=== PATIENT | male | born 1950 | race Caucasian/White ===

== ENCOUNTER → 2016-11-29 | Outpatient (CLI) | payer BC ==
[2016-11-29 14:31] LABS: ALT/SGPT 56 U/L (12-78); AST/SGOT 23 U/L (15-37); BLOOD UREA NITROGEN 18 mg/dl (7-18); BUN/CREATININE RATIO 15.2 (10-20); CALCIUM 9.7 mg/dl (8.5-10.1); CARBON DIOXIDE 30 mmol/L (21-32); CHLORIDE 106 mmol/L (98-107); CHOLESTEROL 236 mg/dl (0-200); GLUCOSE 110 mg/dl (70-99); POTASSIUM 4.9 mmol/L (3.5-5.1); SODIUM 141 mmol/L (136-145)
[2016-11-29 14:35] LABS: HDL CHOLESTEROL 47 mg/dl; LDL CHOLESTEROL CALCULATED 151 mg/dl; PROSTATE SPECIFIC ANTIGEN 0.358 ng/ml (0.000-4.000); TRIGLYCERIDES 190 mg/dl (0-150); VERY LOW DENSITY LIPOPROT CALC 38 mg/dl
== END | disposition home or self-care (01) ==
LOC: C.LABMFLN 07:48
PROVIDERS: ATTEND Family Medicine
DX: K21.9 Gastro-esophageal reflux disease without esophagitis (principal); E78.00 Pure hypercholesterolemia, unspecified; I10 Essential (primary) hypertension; Z12.5 Encounter for screening for malignant neoplasm of prostate

== ENCOUNTER → 2017-12-04 | Outpatient (CLI) | payer BC ==
[2017-12-04 18:12] LABS: ALBUMIN 3.9 gm/dl (3.4-5.0); ALKALINE PHOSPHATASE 43 U/L (45-117); ALT/SGPT 72 U/L (12-78); AST/SGOT 29 U/L (15-37); BLOOD UREA NITROGEN 22 mg/dl (7-18); CALCIUM 9.2 mg/dl (8.5-10.1); CARBON DIOXIDE 29 mmol/L (21-32); CHOLESTEROL 236 mg/dl (0-200); CREATININE 1.16 mg/dl (0.60-1.40); GLUCOSE 86 mg/dl (70-99); LDL CHOLESTEROL CALCULATED 162 mg/dl; POTASSIUM 4.2 mmol/L (3.5-5.1); SODIUM 138 mmol/L (136-145); TOTAL PROTEIN 7.5 gm/dl (6.4-8.2)
== END | disposition home or self-care (01) ==
LOC: C.LABMFLN 12:55
PROVIDERS: ATTEND Family Medicine
DX: E78.00 Pure hypercholesterolemia, unspecified (principal); I10 Essential (primary) hypertension; Z12.5 Encounter for screening for malignant neoplasm of prostate

== ENCOUNTER 2022-08-14 05:14 | Observation (INO) ==
--- NOTE | 2022-04-04 10:43 | PAT Medication Instructions ---
Medication Instructions Date of Service April 04, 2022 Home Medications Medication Instructions Recorded rizatriptan 10 mg tablet 10 mg PO ONCE PRN migraine 01/05/20 headache #27 tabs rizatriptan 10 mg tablet 10 mg PO ONCE PRN migraine headache aloe vera 25 mg capsule 1,000 mg PO QAM multivitamin 1 tab PO QAM psyllium seed (sugar) oral powder (Metamucil (sugar) oral powder) 1 tbsp PO DAILY PRN Constipation Rlrc-S-Fbwayj 3 dose PO QAM Lactobacillus 40-Bifidobact 3-S.thermophilus 100 billion cell capsule (Probiotic) 300 cap PO QAM diltiazem HCl 180 mg capsule,extended release 24 hr 180 mg PO QAM omeprazole 40 mg capsule,delayed release 40 mg PO QAM STOP taking 2 weeks before surgery (or as soon as possible if surgery is within 2 weeks) aloe vera 25 mg capsule 1,000 mg PO QAM Hsuy-D-Depoup 3 dose PO QAM DO NOT take the morning of surgery multivitamin 1 tab PO QAM psyllium seed (sugar) oral powder (Metamucil (sugar) oral powder) 1 tbsp PO DAILY PRN Constipation Lactobacillus 40-Bifidobact 3-S.thermophilus 100 billion cell capsule (Probiotic) 300 cap PO QAM Take morning of surgery With a small sip of water, OTHERWISE NOTHING TO EAT OR DRINK AFTER MIDNIGHT: rizatriptan 10 mg tablet 10 mg PO ONCE PRN migraine headache (if needed) diltiazem HCl 180 mg capsule,extended release 24 hr 180 mg PO QAM omeprazole 40 mg capsule,delayed release 40 mg PO QAM Take evening before surgery rizatriptan 10 mg tablet 10 mg PO ONCE PRN migraine headache (if needed) psyllium seed (sugar) oral powder (Metamucil (sugar) oral powder) 1 tbsp PO DAILY PRN Constipation (if needed) Other Notes If you have any questions please call us at [phone] or [phone] or [phone] or [phone]
--- NOTE | 2022-04-08 08:36 | Anesthesiology Consultation ---
Date of Service April 08, 2022 Assessment & Plan (1) Encounter for pre-operative examination: - Patient acceptable risk for surgery pending surgeon-ordered PCP preop evaluation ([facility]; scheduled 04/19). - COVID screening: Per assessment on 04/08: No known COVID-19 positive contacts or current COVID-19 related symptoms. Travel screen negative. Patient vaccinated. At surgeon discretion if preop Covid testing being done. - Outpatient joint assessment: Pt currently scheduled for inpatient pathway. If surgeon requests review for outpatient joint pathway, patient is acceptable candidate for outpatient joint program from anesthesia standpoint pending surgeon's office assessment of pt motivation/strong post-op home support/completion of same day joint program preop requirements. Chart Review Chart Review: Patient seen in Pre Admission Testing Teaching & Discussion Pre-Anesthesia Teaching/Discussion Notes: Instructed NPO after midnight before surgery,except medications with 15 cc of water. Medication instructions provided according to the PAT guidelines. History Surgery Operation Date: 05/08/22 11:55 Proposed Procedures p Right Total Knee Arthroplasty - Chan Jennings MD Height/Weight Height: 5 ft 7 in Weight: 107 kg Allergies Allergy/AdvReac Type Severity Reaction Status Date / Time No Known Allergies Allergy Verified 04/04/22 08:14 Medications Home Medications Medication Instructions Recorded Confirmed Last Taken rizatriptan 10 mg tablet 10 mg PO ONCE PRN migraine 01/05/20 04/04/22 Unknown headache #27 tabs aloe vera 25 mg capsule 1,000 mg PO QAM 04/06/21 04/04/22 Unknown multivitamin 1 tab PO QAM 04/06/21 04/04/22 Unknown psyllium seed (sugar) oral powder 1 tbsp PO DAILY PRN Constipation 04/06/21 04/04/22 Unknown (Metamucil (sugar) oral powder) [id number]-[id number] 3 dose PO QAM 04/04/22 04/04/22 Unknown Lactobacillus 40-Bifidobact 300 cap PO QAM 04/04/22 04/04/22 Unknown 3-S.thermophilus 100 billion cell capsule (Probiotic) diltiazem HCl 180 mg 180 mg PO QAM 04/04/22 04/04/22 Unknown capsule,extended release 24 hr omeprazole 40 mg capsule,delayed 40 mg PO QAM 04/04/22 04/04/22 Unknown release Past Medical History Medical History Adjustment disorder with depressed mood controlled without meds Benign essential hypertension Carotid stenosis Noted on life screening, no significant carotid stenosis on formal testing/carotid doppler 09/2021 Carpal tunnel syndrome Common migraine without aura Fatty liver Generalized osteoarthritis of multiple sites GERD without esophagitis Hypercholesterolemia Lumbar radiculopathy Lumbar stenosis Myalgia Obesity Prediabetes Sciatica Exercise / Class Metabolic Activity II 4-5 Yardwork/Stairs/Walk up hill (one FS (no CP, no SOB)) Past Family History Family History Mother Diabetes Brother Diabetes Past Surgical History Surgical History History of colonoscopy History of esophagogastroduodenoscopy (EGD) History of oral surgery tooth extractions S/P epidural steroid injection Past Anesthesia History No Hx of Anesthesia Complications and No Family Hx of Anesthesia Complications History of PONV No Hx of PONV and No Hx of Motion Sickness Social History Smoking Status: Former smoker Do You Dip or Chew Tobacco: No Smoking End Date: Quit 1990 Hx Alcohol Use: Yes Alcohol type: beer alcohol intake frequency: holidays/special occasions only Hx Substance Use: No substance use type: does not use Review of Systems Patient denies chest pain, shortness of breath, dyspnea on exertion, fever, chills, cough, wheezing, palpitations. Physical Exam Vital Signs VITALS BP 146/79 P 54 TEMP 98.0 SP02 96%RA RESP 18 PHYSICAL Full cervical extension range of motion. Full TMJ range of motion. TMD 3 finger breaths Mallampati Score 3 Dentition: upper/lower full dentures Lungs: clear throughout to auscultation Cardiac: regular rate and rhythm, no murmurs noted Spine: normal Carotid arteries: negative bruit Extremities: no edema Lab Results Anesthesia Preop Results Results Anesthesia Widget: WBC 8.50 K/ul (4.8-10.8) 04/08/22 Hgb 13.8 g/dl (14.0-18.0) L 04/08/22 Hct 41.2 % (40.1-51.0) 04/08/22 Plt 341 K/uL (130-400) 04/08/22 Na 139 mmol/L (136-145) 04/08/22 K 4.1 mmol/L (3.5-5.1) 04/08/22 Cl 104 mmol/L (98-107) 04/08/22 CO2 26 mmol/L (21-32) 04/08/22 BUN 19 mg/dl (6-23) 04/08/22 Creat 0.97 mg/dl (0.6-1.4) 04/08/22 Glucose Level 95 mg/dl (70-99(Fasting)) 04/08/22 PT 10.9 Seconds (9.0-12.0) 04/08/22 PTT 24.9 Seconds (21.0-31.0) 04/08/22 INR 1.0 (0.9-1.1) 04/08/22 HA1c 6.2 % (4.5-5.6) H 04/08/22 Urine Color Yellow 04/08/22 Urine Appearance Clear (Clear) 04/08/22 Urine pH 5.5 (4.5-7.5) 04/08/22 Urine Specific [place] 1.024 (1.000-1.030) 04/08/22 Urine Protein Negative (Negative) 04/08/22 Urine Glucose (UA) Negative (Negative) 04/08/22 Urine Ketones Negative (Negative) 04/08/22 Urine Blood Negative (Negative) 04/08/22 Urine Nitrite Negative (Negative) 04/08/22 Urine Bilirubin Negative (Negative) 04/08/22 Urine Urobilinogen Negative (Negative) 04/08/22 Urine Leukocyte Esterase Negative (Negative) 04/08/22 Blood Type A Positive 04/08/22 Antibody Screen NEGATIVE 04/08/22 Testing Electrocardiogram Date: 04/08/22 Findings: + SB @ (54) Chest X-Ray Date: 04/08/22 Findings: + NAD Stress Test Date: 08/04/18 Type: exercise Normal exercise echocardiogram without evidence of inducible ischemia. Mild AR. Grade 1 diastolic dysfunction. Thickened mitral valve. EF 50-55%. Grade 1 diastolic dysfunction. Mild concentric LVH. No ST changes on stress ECG. Other Testing Carotid doppler (10/02/21) There is no sonographic evidence of hemodynamically significant stenosis in the right or left carotid arterial system. Antegrade flow is shown in the vertebral arteries. COVID-19 Risk Screen Screening Information COVID-19 Screen Date: 04/08/22 Exposure 21 Days Family/Household +COVID Last 21 Days: No Exposure 10 Days Any COVID Exposure Last 10 Days: No Symptoms Last 10 Days Experienced COVID Sx Last 10 Days: No + COVID 0-90 Days COVID + in Last 0-90 Days: No
--- NOTE | 2022-06-21 11:49 | Anesthesiology Consultation ---
Date of Service June 21, 2022 Assessment & Plan Chart Review Chart Review: Acceptable Risk for Surgery and Patient NOT seen in Pre Admission Testing History Surgery Operation Date: 06/26/22 07:15 Proposed Procedures p Right Total Knee Arthroplasty - Chan Jennings MD Height/Weight Height: 5 ft 6 in Weight: 106.141 kg Allergies Allergy/AdvReac Type Severity Reaction Status Date / Time No Known Allergies Allergy Verified 06/21/22 09:06 Medications Home Medications Medication Instructions Recorded Confirmed Last Taken rizatriptan 10 mg tablet 10 mg PO ONCE PRN migraine 01/05/20 06/21/22 Unknown headache #27 tabs aloe vera 25 mg capsule 1,000 mg PO QAM 04/06/21 06/21/22 Unknown multivitamin 1 tab PO QAM 04/06/21 06/21/22 Unknown psyllium seed (sugar) oral powder 1 tbsp PO DAILY PRN Constipation 04/06/21 06/21/22 Unknown (Metamucil (sugar) oral powder) Ywwp-O-Pxjuta 3 dose PO QAM 04/04/22 06/21/22 Unknown Lactobacillus 40-Bifidobact 300 cap PO QAM 04/04/22 06/21/22 Unknown 3-S.thermophilus 100 billion cell capsule (Probiotic) diltiazem HCl 180 mg 180 mg PO QAM 04/04/22 06/21/22 Unknown capsule,extended release 24 hr omeprazole 40 mg capsule,delayed 40 mg PO QAM 04/04/22 06/21/22 Unknown release Past Medical History Medical History Adjustment disorder with depressed mood REMOTE HX / controlled without meds Benign essential hypertension Carotid stenosis Noted on life screening, no significant carotid stenosis on formal testing/carotid doppler 09/2021 Carpal tunnel syndrome Common migraine without aura Fatty liver Generalized osteoarthritis of multiple sites GERD without esophagitis History of COVID-19 APR 25 + COVID TEST [facility], NO CURRENT S/S. Hypercholesterolemia Lumbar radiculopathy Lumbar stenosis Myalgia Obesity Osteoarthritis of right knee Prediabetes Sciatica Past Family History Family History Mother Diabetes Brother Diabetes Past Surgical History Surgical History History of colonoscopy History of esophagogastroduodenoscopy (EGD) History of oral surgery tooth extractions S/P epidural steroid injection Social History Smoking Status: Former smoker tobacco type: cigarettes Smoking cigarettes per day: 1990 Do You Dip or Chew Tobacco: No Smoking End Date: Quit 1990 Hx Alcohol Use: Yes (HX SOCIAL) Alcohol type: beer alcohol intake frequency: holidays/special occasions only Hx Substance Use: No substance use type: does not use Testing Electrocardiogram Date: 04/08/22 Findings: + SB @ (54) Chest X-Ray Date: 04/08/22 Findings: + NAD Stress Test Date: 08/04/18 Type: exercise Normal exercise echocardiogram without evidence of inducible ischemia. Mild AR. Grade 1 diastolic dysfunction. Thickened mitral valve. EF 50-55%. Grade 1 diastolic dysfunction. Mild concentric LVH. No ST changes on stress ECG. Other Testing Carotid doppler (10/02/21) There is no sonographic evidence of hemodynamically significant stenosis in the right or left carotid arterial system. Antegrade flow is shown in the vertebral arteries.
--- NOTE | 2022-08-13 08:38 | History & Physical Report ---
Date of Service August 13, 2022 Assessment & Plan (1) Primary osteoarthritis of right knee: Plan: Treatment options discussed with patient. He has failed conservative measures and would like to proceed with surgery. Risks, benefits and alternatives to surgery including but not limited to infection, DVT, pain, stiffness, need for revision surgery, damage to blood vessels, damage to nerves, PE, , were discussed with the patient and they wish to proceed. Plan on right total knee arthroplasty at [facility] on 08/14/[address] Jennings. Plan on outpatient PT post op. Aspirin 81mg BID for 1 mo post op for DVT prophylaxis. All questions answered. F/u post op. History of Present Illness Chief Complaint: Right knee pain Primary Care Provider: Patrice Esteves MD 71yo male with PMHx significant for high cholesterol, migraines, GERD, HTN, carotid stenosis who presents with ongoing right knee pain. Pain has been interfering with his daily activity. He has failed conservative measures. He would like to proceed with surgical intervention. Patient denies headaches, sweats, fevers, chills, double vision, blurred vision, cough, sore throat, dysphagia, chest pain, sob, wheezing, n/v/d/c, numbness, tingling, fatigue, urinary symptoms, mood disorders. ROS positive for right knee pain and stiffness. Allergies Allergy/AdvReac Type Severity Reaction Status Date / Time No Known Allergies Allergy Verified 08/14/22 05:31 Home Medications Medication Instructions Recorded Confirmed Type rizatriptan 10 mg tablet 10 mg PO ONCE PRN migraine 01/05/20 08/14/22 Rx headache #27 tabs aloe vera 25 mg capsule 1,000 mg PO QAM 04/06/21 08/14/22 History multivitamin 1 tab PO QAM 04/06/21 08/14/22 History psyllium seed (sugar) oral powder 1 tbsp PO DAILY PRN Constipation 04/06/21 08/14/22 History (Metamucil (sugar) oral powder) Hfoe-N-Xydvif 3 dose PO QAM 04/04/22 08/14/22 History Lactobacillus 40-Bifidobact 300 cap PO QAM 04/04/22 08/14/22 History 3-S.thermophilus 100 billion cell capsule (Probiotic) diltiazem HCl 180 mg 180 mg PO QAM 04/04/22 08/14/22 History capsule,extended release 24 hr omeprazole 40 mg capsule,delayed 40 mg PO QAM 04/04/22 08/14/22 History release Past Med/Surg History Medical History Adjustment disorder with depressed mood REMOTE HX / controlled without meds Benign essential hypertension Carotid stenosis Noted on life screening, no significant carotid stenosis on formal testing/carotid doppler 09/2021 Carpal tunnel syndrome Common migraine without aura Fatty liver Generalized osteoarthritis of multiple sites GERD without esophagitis History of COVID-19 APR 25 + COVID TEST [facility], NO CURRENT S/S. Hypercholesterolemia Lumbar radiculopathy Lumbar stenosis Myalgia Obesity Osteoarthritis of right knee Prediabetes Sciatica Surgical History History of colonoscopy History of esophagogastroduodenoscopy (EGD) History of oral surgery tooth extractions S/P epidural steroid injection Family History Mother Diabetes Brother Diabetes Social History Smoking Status: Former smoker Cigarettes Per Day: 1990; Smoking End Date: Quit 1990; Second Hand Exposure: No; Do You Dip or Chew Tobacco: No; Tobacco Cessation Education Requested by Patient: No Hx Alcohol Use: Yes (HX SOCIAL) Alcohol type: beer Hx Substance Use: No Preferred Language: Telugu Communication Ability: Effective Visual Impairment: No Limitations Hearing Ability: Normal Property Administrator Required: No Beliefs That Will Affect Care: None marital status: Current Living Situation: Spouse Current Living Situation Comment: lives with spouse and son current occupational status: employed Other Information That Helps Us Care for You: No Feels Safe at Home: Yes Safety Concerns: Feels Safe At This Time Childhood Exposure to Second-Hand Smoke: Yes caffeine: Yes Dental Care, Regularly: Yes Physical Activity Frequency: 3-4 Times per Week Physical Activity Frequency Comment: walking, house chores Seatbelt Use: always Sunscreen Use: No Assistive Devices: Denture - Upper, Denture - Lower and Glasses Review of Systems All systems reviewed & are unremarkable except as noted in HPI & below Physical Exam Constitutional: well developed and well nourished; no acute distress Eyes: PERRL, conjunctivae normal, anicteric sclerae ENMT: external ear and nose normal, oropharynx normal Neck: trachea midline, no thyromegaly Respiratory: normal respiratory effort, lungs clear to auscultation Cardiovascular: RRR, no murmur, no edema Musculoskeletal: Right knee: Mild effusion. Tenderness medial joint line. Positive Pati's, stable to valgus and varus stress. ROM 5-100 degrees Skin: no rashes, warm and dry Neurologic: patellar DTR's 2+ bilat, sensation intact Psychiatric: A+Ox3, euthymic affect Results & Data ([facility]) Diagnostic Findings Right knee radiographs demonstrate endstage osteoarthritis, bone on bone medial compartment with periarticular osteophyte formation and subchondral sclerosis, patellofemoral joint arthritic change
[2022-08-14] MEDS ORDERED: METOCLOPRAMIDE HCL 10 MG TABLET PO SCH (06:00)
[2022-08-14] MEDS ORDERED: CeleBREX 200 MG CAP PO SCH (06:00)
[2022-08-14] MEDS ORDERED: ACETAMINOPHEN 500 MG TAB PO SCH (06:00)
[2022-08-14] MEDS ORDERED: GABAPENTIN 300 MG CAP PO SCH (06:00)
[2022-08-14] MEDS ORDERED: ceFAZolin 2000MG 2,000 MG/15 ML SYR IV SCH (06:00)
[2022-08-14] MEDS ORDERED: TRANEXAMIC ACID 1,000 MG **IV Pre-op IV SCH (06:00)
[2022-08-14] MEDS ORDERED: dexAMETHasone 4 MG TAB PO SCH (06:00)
[2022-08-14] MEDS ORDERED: LR 500ML BOLUS, THEN 15ML/HR IV SCH (06:00)
[2022-08-14] MEDS ORDERED: TRANEXAMIC ACID 1,000 MG **IV Intra-op IV SCH (06:00)
[2022-08-14] MEDS ORDERED: ROPIVACAINE 0.5% HCL/PF 150 MG, BUPIVACAINE 0.75% MPF 20 ML, EPINEPHrine 30MG/30ML (OR ... INSTIL SCH (06:00)
[2022-08-14] MEDS ORDERED: FAMOTIDINE 20 MG TAB PO SCH (06:00)
[2022-08-14] MEDS ORDERED: ROPIVACAINE 0.5% 5 MG/ML 30 ML VIAL ONE (06:16)
[2022-08-14] MEDS ORDERED: EPINEPHrine INJ 1 MG/ML AMP ONE (06:16)
[2022-08-14] MEDS ORDERED: BUPIVACAINE 0.5 % 5 MG/1 ML PF 10ML VIAL ONE (06:16)
[2022-08-14] MEDS ORDERED: LIDOCAINE 2% MPF LOCAL 5 ML VIAL INFIL ONE (06:34)
[2022-08-14] MEDS ORDERED: MIDAZOLAM HCL 1 MG/ML 2ML VIAL ONE (06:34)
[2022-08-14] MEDS ORDERED: ONDANSETRON INJ 2 MG/ML 2 ML VIAL ONE (06:34)
[2022-08-14] MEDS ORDERED: PROPOFOL IV EMULSION 10 MG/ML 20 ML VIAL IV ONE ×3 (06:34→09:34)
--- NOTE | 2022-08-14 07:17 | History & Physical Bridge Note ---
Date of Service August 14, 2022 History & Physical Bridge Note I have examined the patient, reviewed the History & Physical and in the interval since the performance of the History & Physical I have noted the following changes of clinical significance: no changes noted
[2022-08-14] MEDS ORDERED: ORTHO JOINT ANESTHETIC ONE (07:21)
[2022-08-14] MEDS ORDERED: ePHEDrine sulfate 50 MG/ML SYR ONE (07:53)
[2022-08-14] MEDS ORDERED: fentaNYL citrate 100 MCG/2 ML VIAL ONE (09:06)
[2022-08-14] MEDS ORDERED: RIZATRIPTAN BENZOATE 10 MG TAB PO PRN (11:07)
[2022-08-14] MEDS ORDERED: ePHEDrine sulfate 50 MG/ML AMP IV PRN (11:21)
[2022-08-14] MEDS ORDERED: ATROPINE SULFATE 0.1 MG/ML 10ML SYR IV PRN (11:21)
--- NOTE | 2022-08-14 11:34 | XRay Report ---
RIGHT KNEE 2 VIEWS History: Right total knee arthroplasty. Degenerative arthritis. Postop. FINDINGS: The patient is status post a right total knee arthroplasty. The hardware is intact. No frac ture or dislocation. Skin caterina and surgical drains are in place. IMPRESSION: Right total knee arthroplasty. No evidence for hardware complication. ACT 112: Negative or not required by law. Electronically signed by: Raghav Wilson M.D. 08/14/2022 10:58 AM
[2022-08-14] MEDS ORDERED: ONDANSETRON INJ 2 MG/ML 2 ML VIAL IV PRN (11:53)
[2022-08-14] MEDS ORDERED: METOCLOPRAMIDE HCL INJ 5 MG/ML 2 ML VIAL IV PRN (11:53)
[2022-08-14] MEDS ORDERED: bisacodyL 10 MG SUPP PR PRN (11:53)
[2022-08-14] MEDS ORDERED: NALOXONE HCL 0.4 MG/1 ML VIAL/CARP IV PRN ×2 (11:53→13:24)
[2022-08-14] MEDS ORDERED: MAGNESIUM HYDROXIDE SUSP 30 ML UDC PO PRN (11:53)
[2022-08-14] MEDS ORDERED: SODIUM CHLORIDE 0.9% 1000ML 1,000 ML IV SCH ×2 (12:00→12:45)
--- NOTE | 2022-08-14 12:34 | Operative Report ---
Post Operative Report Pre & Post Diagnosis Operation Date: 08/14/22 07:15 Pre-Op Diagnosis: Primary end-stage osteoarthritis of right knee Post-Op Diagnosis: Primary end-stage osteoarthritis of right knee I identified the patient and participated in the time-out.: Yes Procedure Operation Date: 08/14/22 07:15 Actual Procedures p Right Total Knee Arthroplasty(Right), patricia and Acticoat superficial wound VAC- Chan Jennings MD Surgeon Chan Jennings MD 3D Specialist Ulisses TADEO Estimated Blood Loss 5 Findings Consistent with Post-Op Diagnosis Specimens Bone cuts Drains 2 Hemovac Anesthesia Type MAC Spinal Regional Complications none Disposition Disposition: Recovery Room Indications 71-year-old male with chronic bilateral knee osteoarthritis. He has varus right knee with vttj-[id number]-[id number] medial compartment but tricompartmental osteophytes. Description of Procedure Patient was taken to the operating room placed supine on the operating table and anesthetized under spinal MAC regional block anesthesia. Exam under anesthesia demonstrated 15 to 20 degree flexion contracture with further flexion to only 100 degrees with a moderate large effusion and no instability. A pneumatic tourniquet was placed about the thigh of the right lower extremity. The right lower extremity was prepped and draped in usual sterile fashion. The leg was elevated exsanguinated with an Esmarch bandage and the pneumatic tourniquet was raised to 350 mm mercury. An anterior incision was made across the right knee. The skin was incised longitudinally subcutaneous flaps were elevated and an incision was made through the medial retinaculum extending up into the mid third of the quadriceps tendon and extended down to the medial tibial tubercle. Intra-articular findings demonstrated tricompartmental osteoarthritis [id number] medial compartment with eburnated bone. There was degeneration of the ACL but was still intact. The knee was exposed by excising the infrapatellar fat pad, excising the meniscal remnants and anterior cruciate ligament. Any inflamed synovial tissue was resected. The fat pad over the anterior femur was resected for placement of the component in that area. The lateral synovial bands were release. The femur was exposed. The custom femoral cutting block was pinned in position. The distal femoral cutting block was applied. The distal femoral cut was made with the oscillating saw. The size 10, 4-in-1 cutting block was placed. The anterior and posterior chamfer cuts were made. The knee was extended and a subperiosteal peel lateral release was performed around the patella. The patella width was measured and width was reproduced using freehand cut technique. The 35 millimeter symmetrical patella was used. 3 drill holes are made for the pegs. The tibia was exposed. A custom tibial cutting block was positioned and drill holes were made for the cutting guide. Cutting guide was placed and the proximal cut was made with the oscillating saw. All osteophytes were resected. The lamina lime spreader was used to assess ligamentous balance and the ligaments were balanced in extension and flexion. This required medial posterior medial release and pie crusting MCL to balance ligaments. The tibia was reexposed and measured for a size F tibial component. This was externally rotated in line with the tibial tubercle and the fixation pins were drilled. The proximal tibia was fashioned with the drill and punch. The size 10 CR femoral trial was inserted. The trial MC inserts were used. The 14 mm insert gave balanced ligaments through full range of motion. The patella tracked centrally. the trials were removed. The orthomix anesthetic cocktail was injected per protocol. The knee was then copiously irrigated with pulsatile lavage saline solution. The final components were cemented with Refobacin bone cement. The final components were 10 standard CR right persona femoral component, F right tibial component, 14 mm right MC polyethylene tibial component, 35 symmetrical polyethylene patella. After the cement cured with the knee in full extension the Betadine soak was used per protocol. The knee joint was copiously irrigated with pulsatile lavage saline solution . 2 drains were brought out laterally and connected to a Hemovac. The quadriceps tendon and medial retinaculum were closed with interrupted enrshj-nr-gvnix #1 Vicryl sutures. The knee was taken through a full range of motion and repair was secure. The subcutaneous tissues were closed with 2-0 Vicryl sutures and skin was closed with caterina. Patricia and Acticoat superficial wound VAC was applied and the patient tolerated the procedure well. Ulisses TADEO my physician certified dental assistant participated as dental chairside assistant was a integral part in all aspects of the procedure, he assisted in soft tissue retraction, instrument management ,leg positioning, the closure and will participate in the postoperative care of the patient. I attest to the content of the Intraoperative Record and any orders documented therein. Any exceptions are noted below.
--- NOTE | 2022-08-14 12:36 | Anesthesiology Progress Note ---
Date of Service August 14, 2022 Anesthesia Post Procedure Vital Signs Vital Signs: Temp Pulse Resp BP Pulse Ox O2 Del Method 08/14/22 05:34 36.8 C 67 18 161/74 H 97 Room Air Transfer of Care Handoff Completed per policy Notes Mental Status: alert / awake / arousable Patient Amnestic to Procedure: Yes Nausea / Vomiting: adequately controlled Pain: adequately controlled Airway Patency, RR, SpO2: stable & adequate BP & HR: stable & adequate Hydration State: stable & adequate Neuraxial Anesthesia: was administered and sensory block is resolving Anesthetic Complications: no major complications apparent
[2022-08-14] MEDS ORDERED: TAMSULOSIN HCL 0.4 MG CAP PO PRN (13:24)
[2022-08-14] MEDS ORDERED: HYDROmorphone INJ 0.5 MG/0.5 ML SYR IV PRN (13:24)
--- NOTE | 2022-08-14 14:33 | Hospitalist Consultation ---
Date of Consultation August 14, 2022 Assessment & Plan (1) Status post right knee replacement: -The patient is currently afebrile, hemodynamically stable, and stable on RA -Pain control, DVT PPX, perioperative abx, and IV fluids per the primary team -Agree with pantoprazole for stress ulcer PPX and am CBC/BMP -We will sign off but will follow up on am labs to ensure the patient remains stable, please call with any questions or concerns (2) GERD without esophagitis: -Agree with pantoprazole while admitted for stress ulcer PPX (3) Benign essential hypertension: -Stable -Agree with continue Diltiazem tomorrow as long as the patient is hemodynamicall y stable (4) Headache, common migraine: -Agree with prn Rizatriptan as long as the patient is not hypertensive prior to administration Plan The patient was discussed with Dr. Cary at the time of the consult History of Present Illness Reason for Consultation: Post-op medical management Requesting Physician: Chan Jennings MD Attending Physician: Dr. Raj Cary History of Present Illness Rolando is a 71 year old male with a PMH significant for Carotid artery stenosis, HTN, migraines without Aura, fatty liver disease, GERD, hyperlipidemia, prediabetes, obesity, and OA who presented to the [facility] OR on 08/14/22 for elective Right Total Knee Arthroplasty with Dr. Jennings. Per the operative report, there were no reported intraoperative complications, anesthesia was listed as "[facility]", and EBL was listed as 5 cc. Per review of the patient vitals, he has been afebrile, hemodynamically stable- hypertensive (175/80), and stable on RA. At the time of the exam the patient was resting comfortably in bed in no acute distress. He currently has no complaints post-op and was already able to void and eat lunch. He does not have any pain in the right leg at this time and is still feeling the partial effects of the nerve block. He denies using a CPAP at night and confirms that he took his am Diltiazem. Please refer to Dr. Cary's attestation for any changes to the treatment plan Allergies Allergy/AdvReac Type Severity Reaction Status Date / Time No Known Allergies Allergy Verified 08/14/22 05:31 Home Medications Medication Instructions Recorded Confirmed Type rizatriptan 10 mg tablet 10 mg PO ONCE PRN migraine 01/05/20 08/14/22 Rx headache #27 tabs aloe vera 25 mg capsule 1,000 mg PO QAM 04/06/21 08/14/22 History multivitamin 1 tab PO QAM 04/06/21 08/14/22 History psyllium seed (sugar) oral powder 1 tbsp PO DAILY PRN Constipation 04/06/21 08/14/22 History (Metamucil (sugar) oral powder) Wgyx-F-[id number] 3 dose PO QAM 04/04/22 08/14/22 History Lactobacillus 40-Bifidobact 300 cap PO QAM 04/04/22 08/14/22 History 3-S.thermophilus 100 billion cell capsule (Probiotic) diltiazem HCl 180 mg 180 mg PO QAM 04/04/22 08/14/22 History capsule,extended release 24 hr omeprazole 40 mg capsule,delayed 40 mg PO QAM 04/04/22 08/14/22 History release Patient History Medical History (Updated 08/14/22 @ 14:31 by Samir Noel PA-C) Adjustment disorder with depressed mood REMOTE HX / controlled without meds Benign essential hypertension Carotid stenosis Noted on life screening, no significant carotid stenosis on formal testing/carotid doppler 09/2021 Carpal tunnel syndrome Common migraine without aura Fatty liver Generalized osteoarthritis of multiple sites GERD without esophagitis History of COVID-19 APR 25 + COVID TEST [facility], NO CURRENT S/S. Hypercholesterolemia Lumbar radiculopathy Lumbar stenosis Myalgia Obesity Osteoarthritis of right knee Prediabetes Sciatica Surgical History (Updated 08/14/22 @ 14:31 by Samir Noel PA-C) History of colonoscopy History of esophagogastroduodenoscopy (EGD) History of oral surgery tooth extractions S/P epidural steroid injection Family History Mother Diabetes Brother Diabetes Social History Smoking Status: Former smoker Cigarettes Per Day: 1990; Smoking End Date: Quit 1990; Second Hand Exposure: No; Do You Dip or Chew Tobacco: No; Tobacco Cessation Education Requested by Patient: No Hx Alcohol Use: Yes (HX SOCIAL) Alcohol type: beer Hx Substance Use: No Preferred Language: Pry[place]in[place] Communication Ability: Effective Visual Impairment: No Limitations Hearing Ability: Normal Die Cutter Required: No Beliefs That Will Affect Care: None marital status: Current Living Situation: Spouse Current Living Situation Comment: lives with spouse and son current occupational status: employed Other Information That Helps Us Care for You: No Feels Safe at Home: Yes Safety Concerns: Feels Safe At This Time Childhood Exposure to Second-Hand Smoke: Yes caffeine: Yes Dental Care, Regularly: Yes Physical Activity Frequency: 3-4 Times per Week Physical Activity Frequency Comment: walking, house chores Seatbelt Use: always Sunscreen Use: No Assistive Devices: Denture - Upper, Denture - Lower and Glasses Review of Systems Review of Systems: Denies current fever, chills, headache, changes in vision, hearing, taste, and smell, chest pain, SOB, cough, abdominal pain, nausea, vomiting, diarrhea, hematemesis, melena, dysuria, hematuria, and recent falls. All systems have been reviewed and are otherwise negative. Physical Exam Physical Exam: Physical Exam: General: In no acute distress, stated age, well-nourished, good hygiene HEENT: Normocephalic, atraumatic, no scleral icterus, pupils around round, symmetrical, and reactive to light, moist mucus membranes, trachea midline, no thyromegaly Chest/Pulm: No respiratory distress, symmetrical chest expansion, clear breath sounds throughout Cardiac: RRR, no murmurs noted Abdomen: Negative for ascites and bruising, normoactive bowel sounds, soft, non-tender to palpation throughout Musculoskeletal: RLE currently with wrap and SCD in place. Drain is in place at the surgical site and is without signs of infection, patient with intact sensation, motor function and distal pulses in the BL LEs Extremities: Radial, dorsalis pedis, and posterior tibial pulses are intact and symmetrical, no edema noted in the BL LE's Skin: Warm, dry, no rashes , lesions, or scars noted Neuro: Alert and oriented to person, place, month, year, and president, no focal defects Psych: No acute distress, calm and cooperative during the exam Results & Data Results & Data ([facility]) Vital Signs (Past 12 Hours) Vital Signs Temp Pulse Resp BP Pulse Ox O2 Del Method 08/14/22 13:39 36.4 C L 82 18 139/74 94 Room Air 08/14/22 12:31 36.6 C 79 18 175/80 H 94 Room Air 08/14/22 12:01 36.5 C 80 18 167/84 H 94 Room Air 08/14/22 05:34 36.8 C 67 18 161/74 H 97 Room Air Laboratory Results Abnormal lab results 08/14/22 Range/Units 05:44 POC Glucose 116 H (70-99) mg/dl Diagnostic Findings Knee X-Ray 08/14/22 11:22 RIGHT KNEE 2 VIEWS History: Right total knee arthroplasty. Degenerative arthritis. Postop. FINDINGS: The patient is status post a right total knee arthroplasty. The hardware is intact. No fracture or dislocation. Skin caterina and surgical drains are in place. IMPRESSION: Right total knee arthroplasty. No evidence for hardware complication. ACT 112: Negative or not required by law. Electronically signed by: Raghav Wilson M.D. 08/14/2022 10:58 AM ECG Additional Comments: No ECg available at the time of the consult PG Care Time/CCT Total # of Minutes Spent Total Time Spent with Patient: Total time spent is greater than 50% in coordination of care (as documented) at patient's floor/unit and/or counseling patient: Coding Level of Care Code Established Pt INP/OBS CONSULT LVL 5, 80 MIN Patient Type Established Medical Decision Making High Complexity Diagnoses Status post right knee replacement Z96.651 GERD without esophagitis K21.9 Benign essential hypertension I10 Headache, common migraine G43.009
[2022-08-14] MEDS: ACETAMINOPHEN 500 MG TAB PO SCH ×2 (16:04→22:36)
[2022-08-14] MEDS: ceFAZolin 2000MG 2,000 MG/15 ML SYR IV SCH ×2 (16:06→22:36)
[2022-08-14] MEDS: ASPIRIN 81 MG ECTAB PO SCH (20:26)
[2022-08-14] MEDS: SENNA 8.6 MG TAB PO SCH (20:26)
[2022-08-14] MEDS: CeleBREX 200 MG CAP PO SCH (20:27)
[2022-08-14] MEDS: DOCUSATE SODIUM 100 MG CAP PO SCH (20:28)
[2022-08-15] MEDS: oxyCODONE HCL IR 5 MG TAB (IMMEDIATE RELEASE) PO PRN ×3 (03:24→22:09)
[2022-08-15] MEDS: ACETAMINOPHEN 500 MG TAB PO SCH ×3 (05:27→22:07)
[2022-08-15 07:08] LABS: BUN Creatinine Ratio 18.9 (10-20); Calcium 9.3 mg/dl (8.5-10.1); Creatinine Clr Calc Pharmacy 82.4 ml/min; Est GFR (Non-African American) 80.2 ml/min; Potassium 4.6 mmol/L (3.5-5.1)
--- NOTE | 2022-08-15 07:40 | Orthopedic Progress Note ---
Date of Service August 15, 2022 Assessment & Plan (1) Primary osteoarthritis of right knee: Plan: POD#1 right TKA -PT/OT -Pain management as written -DVT prophylaxis-SCDs, TEDs, ASA 81mg BID -AM labs-pending -D/C planning-plan on d/c home with OPPT. Likely tomorrow based on amount of drainage however will recheck after PT for possible discharge today if therapy goes well and pain controlled. Admission and Anticipated Discharge Date Admission Date: August 14, 2022 Subjective Patient is postop day 1 right total knee. Overall he is doing well. His pain is well controlled. Did have episode of knee giving out on him yesterday but seems to be imporoving. Review of Systems Review of Systems: All systems reviewed & are unremarkable except as noted in Subjective Physical Exam Physical Exam: Right knee: Dressing is c/d/i. Hemovac on suction, 225cc over last shift. No calf tenderness. Toes mobile with good DF. Distally n/v status and sensation grossly intact. Able to do SLR. Constitutional: WD/WN, vitals as above Results & Data ([facility]) Vital Signs (Past 12 Hours) Vital Signs Temp Pulse Resp BP Pulse Ox O2 Del Method 08/15/22 03:40 36.6 C 82 20 152/77 H 96 Room Air 08/14/22 22:34 36.7 C 83 18 136/76 96 Room Air 08/14/22 19:39 36.6 C 97 H 16 135/72 95 Room Air
[2022-08-15] MEDS: dilTIAZem HCL 180 MG CAPCR PO SCH (08:17)
[2022-08-15] MEDS: MULTIVITAMIN TAB PO SCH (08:17)
[2022-08-15] MEDS: PANTOprazole 40 MG TAB PO SCH (08:17)
[2022-08-15] MEDS: DOCUSATE SODIUM 100 MG CAP PO SCH ×2 (08:18→20:59)
[2022-08-15] MEDS: ASPIRIN 81 MG ECTAB PO SCH ×2 (08:18→21:00)
[2022-08-15] MEDS: CeleBREX 200 MG CAP PO SCH ×2 (08:18→21:00)
[2022-08-15 09:27] LABS: Hematocrit (blood only) 36.1 % (42.0-52.0); Hemoglobin 12.3 g/dl (14.0-18.0); Mean Corpuscular Hemoglobin 28.7 pg (25.0-34.0); Mean Corpuscular Hgb Conc 34.1 g/dL (32.0-36.0); Mean Corpuscular Volume 84.1 fL (80.0-100.0); Mean Platelet Volume 9.6 fL (9.4-12.4); Platelet Count 289 K/uL (130-400); RDW Coefficient of Variation 12.6 % (11.5-14.5); RDW Standard Deviation 38.1 fL (36.4-46.3); Red Blood Count 4.29 M/uL (4.70-6.10); White Blood Count 13.75 K/ul (4.8-10.8)
--- NOTE | 2022-08-15 11:11 | Hospitalist Progress Note ---
Date of Service August 15, 2022 Assessment & Plan (1) Status post right knee replacement: Plan: -The patient is currently afebrile, hemodynamically stable, and stable on RA -Pain control, DVT PPX, perioperative abx, and IV fluids per the primary team -Agree with pantoprazole for stress ulcer PPX and am CBC/BMP -We will sign off, please call if any questions or concerns (2) GERD without esophagitis: Plan: -Agree with pantoprazole while admitted for stress ulcer PPX (3) Benign essential hypertension: Plan: -Stable -Agree with continue Diltiazem tomorrow as long as the patient is hemodynamically stable (4) Headache, common migraine: Plan: -Agree with prn Rizatriptan as long as the patient is not hypertensive prior to administration (5) Leukocytosis: Plan: Mild elevation of WBCs Afebrile No congestion, cough, SOB or urine symptoms Likely acute phase reactant Recommend to follow up with repeat CBC in AM if still here vs repeat as outpatient Admission and Anticipated Discharge Date Admission Date: August 14, 2022 Subjective Patient is sitting up in recliner in NAD and has no complaints. Review of Systems Constitutional: no fever, no chills, no sweats and no body aches Respiratory: no cough, no chest congestion and no dyspnea Cardiovascular: no chest pain, no dyspnea and no syncope Gastrointestinal: no abdominal pain, no nausea, no vomiting and no blood in stools Genitourinary: no dysuria, no difficulty urinating, no urinary frequency, no urinary hesitancy or no flank pain Integumentary: no rash, no lesions and no new lesions Physical Exam Constitutional: WD/WN, vitals as above Neck: trachea midline, no thyromegaly Respiratory: normal respiratory effort, lungs clear to auscultation Cardiovascular: RRR, no murmur, no edema Gastrointestinal (Abdomen): normal bowel sounds, soft, nontender, no hepatosplenomegaly Musculoskeletal: Surgical dressing over right knee with drain in place Results & Data Results & Data ([facility]) Vital Signs (Past 12 Hours) Vital Signs Temp Pulse Resp BP Pulse Ox O2 Del Method 08/15/22 07:37 36.5 C 73 18 160/79 H 97 Room Air 08/15/22 03:40 36.6 C 82 20 152/77 H 96 Room Air Laboratory Results Abnormal lab results 08/15/22 08/15/22 Range/Units 06:05 06:05 WBC 13.75 H (4.8-10.8) K/ul RBC 4.29 L (4.70-6.10) M/uL Hgb 12.3 L (14.0-18.0) g/dl Hct 36.1 L (42.0-52.0) % Glucose 133 H (70-99(Fasting)) mg/dl PG Care Time/CCT Total # of Minutes Spent Total Time Spent with Patient: Total time spent is greater than 50% in coordination of care (as documented) at patient's floor/unit and/or counseling patient: Coding Level of Care Code 07384 SUB INP/OBS CARE 08/14MIN Diagnoses Status post right knee replacement Z96.651 GERD without esophagitis K21.9 Benign essential hypertension I10 Headache, common migraine G43.009 Leukocytosis D72.829
[2022-08-15] MEDS: SENNA 8.6 MG TAB PO SCH (21:00)
[2022-08-16] MEDS: oxyCODONE HCL IR 5 MG TAB (IMMEDIATE RELEASE) PO PRN ×2 (05:14→11:54)
[2022-08-16] MEDS: ACETAMINOPHEN 500 MG TAB PO SCH (05:15)
[2022-08-16] MEDS: PANTOprazole 40 MG TAB PO SCH (08:30)
[2022-08-16] MEDS: DOCUSATE SODIUM 100 MG CAP PO SCH (08:30)
[2022-08-16] MEDS: ASPIRIN 81 MG ECTAB PO SCH (08:30)
[2022-08-16] MEDS: MULTIVITAMIN TAB PO SCH (08:30)
[2022-08-16] MEDS: CeleBREX 200 MG CAP PO SCH (08:30)
[2022-08-16] MEDS: dilTIAZem HCL 180 MG CAPCR PO SCH (08:30)
--- NOTE | 2022-08-16 09:29 | Orthopedic Progress Note ---
Date of Service August 16, 2022 Assessment & Plan (1) Primary osteoarthritis of right knee: Plan: POD#2 right TKA -PT/OT -Pain management as written -DVT prophylaxis-SCDs, TEDs, ASA 81mg BID -D/C planning-plan on d/c home with OPPT. Plan for discharge to home today. Admission and Anticipated Discharge Date Admission Date: August 14, 2022 Subjective Postop day 2 Patient sitting up in bed awake and alert. Pain is controlled. Denies shortness of breath, chest pain, lightheadedness. He feels well this morning and is hoping to go home. Hemovac drainage has decreased since yesterday. Patient states that Dr Jennings was in this morning. Physical Exam Physical Exam: Dressings are clean, dry, and intact. Calves are soft nontender. Neurovascular intact. Toes are mobile. Hemovac drainage was 50 cc from the previous shift. Results & Data ([facility]) Vital Signs (Past 12 Hours) Vital Signs Temp Pulse Resp BP Pulse Ox O2 Del Method 08/16/22 07:05 36.8 C 61 18 135/72 97 Room Air 08/15/22 22:09 36.7 C 60 16 156/88 H 97 Room Air
--- NOTE | 2022-08-20 10:35 | Discharge Summary ---
Date of Service August 20, 2022 Admission HPI Per Admitting Provider 71yo male with PMHx significant for high cholesterol, migraines, GERD, HTN, carotid stenosis who presents with ongoing right knee pain. Pain has been interfering with his daily activity. He has failed conservative measures. He would like to proceed with surgical intervention. Patient denies headaches, sweats, fevers, chills, double vision, blurred vision, cough, sore throat, dysphagia, chest pain, sob, wheezing, n/v/d/c, numbness, tingling, fatigue, urinary symptoms, mood disorders. ROS positive for right knee pain and stiffness. Admission Exam Per Admitting Provider Constitutional: well developed and well nourished; no acute distress Eyes: PERRL, conjunctivae normal, anicteric sclerae ENMT: external ear and nose normal, oropharynx normal Neck: trachea midline, no thyromegaly Respiratory: normal respiratory effort, lungs clear to auscultation Cardiovascular: RRR, no murmur, no edema Musculoskeletal: Right knee: Mild effusion. Tenderness medial joint line. Positive Pati's, stable to valgus and varus stress. ROM 5-100 degrees Skin: no rashes, warm and dry Neurologic: patellar DTR's 2+ bilat, sensation intact Psychiatric: A+Ox3, euthymic affect Principal Diagnosis Right knee osteoarthritis Discharge Exam Right knee: Dressing is c/d/i. Hemovac on suction, 225cc over last shift. No calf tenderness. Toes mobile with good DF. Distally n/v status and sensation grossly intact. Able to do SLR. Constitutional WD/WN, vitals as above Discharge Data Allergies Allergy/AdvReac Type Severity Reaction Status Date / Time No Known Allergies Allergy Verified 08/14/22 05:31 Consultations 08/09/22 13:36 Consult Hospitalist Routine Procedures Performed Operation Date: 08/14/22 07:15 Actual Procedures p Right Total Knee Arthroplasty(Right) - Chan Jennings MD Ordered Studies 08/14/22 07:29 US - OR guided needle placemen Stat Hospital Course (1) Primary osteoarthritis of right knee: POD#2 right TKA -PT/OT -Pain management as written -DVT prophylaxis-SCDs, TEDs, ASA 81mg BID -D/C planning-plan on d/c home with OPPT. Plan for discharge to home today. POD#1 right TKA -PT/OT -Pain management as written -DVT prophylaxis-SCDs, TEDs, ASA 81mg BID -AM labs-pending -D/C planning-plan on d/c home with OPPT. Likely tomorrow based on amount of drainage however will recheck after PT for possible discharge today if therapy goes well and pain controlled. Lab Results 08/14/22 08/14/22 08/15/22 Range/Units 05:25 05:44 06:05 WBC 13.75 H (4.8-10.8) K/ul RBC 4.29 L (4.70-6.10) M/uL Hgb 12.3 L (14.0-18.0) g/dl Hct 36.1 L (42.0-52.0) % MCV 84.1 (80.0-100.0) fL MCH 28.7 (25.0-34.0) pg MCHC 34.1 (32.0-36.0) g/dL RDW Std Deviation 38.1 (36.4-46.3) fL RDW Coeff of Chilo 12.6 (11.5-14.5) % Plt Count 289 (130-400) K/uL MPV 9.6 (9.4-12.4) fL Sodium (136-145) mmol/L Potassium (3.5-5.1) mmol/L Chloride (98-107) mmol/L Carbon Dioxide (21-32) mmol/L Anion Gap (3-11) BUN (6-23) mg/dl Creatinine (0.6-1.4) mg/dl Est Cr Clr Drug Dosing ml/min Est GFR ( Amer) ml/min Est GFR (Non-Af Amer) ml/min BUN/Creatinine Ratio (10-20) Glucose (70-99(Fasting)) mg/dl POC Glucose 116 H (70-99) mg/dl Calcium (8.5-10.1) mg/dl SARS-CoV-2, RNA, NAAT NEGATIVE (NEGATIVE) 08/15/22 Range/Units 06:05 WBC (4.8-10.8) K/ul RBC (4.70-6.10) M/uL Hgb (14.0-18.0) g/dl Hct (42.0-52.0) % MCV (80.0-100.0) fL MCH (25.0-34.0) pg MCHC (32.0-36.0) g/dL RDW Std Deviation (36.4-46.3) fL RDW Coeff of Chilo (11.5-14.5) % Plt Count (130-400) K/uL MPV (9.4-12.4) fL Sodium 139 (136-145) mmol/L Potassium 4.6 (3.5-5.1) mmol/L Chloride 106 (98-107) mmol/L Carbon Dioxide 27 (21-32) mmol/L Anion Gap 6 (3-11) BUN 18 (6-23) mg/dl Creatinine 0.95 (0.6-1.4) mg/dl Est Cr Clr Drug Dosing 82.4 ml/min Est GFR ( Amer) 93.0 ml/min Est GFR (Non-Af Amer) 80.2 ml/min BUN/Creatinine Ratio 18.9 (10-20) Glucose 133 H (70-99(Fasting)) mg/dl POC Glucose (70-99) mg/dl Calcium 9.3 (8.5-10.1) mg/dl SARS-CoV-2, RNA, NAAT (NEGATIVE) Total Time Total Time Spent Total Time Spent (In Minutes): 20 Discharge Plan Discharge Items Patient Disposition: Home - Self-Care Reason For Visit: Bilateral Primary Osteoarthritis of Knee Discharge Diagnosis: Right knee osteoarthritis Activity: Per Instructions section Weightbearing: Right weightbearing Weightbearing Comment: as tolerated with walker Non-emergency contact: Surgeon Call non-emergency contact if: you have any medication questions, your pain is concerning for you, you have a fever, your temperature is above 101, your wound has increased redness and your wound has increased drainage Follow-up/Referrals: Patrice Esteves MD [Primary Care Provider] - Chan Jennings MD [Surgeon] - (Follow up with Dr Jennings or his PA in 2 weeks from the day of your surgery for your first post operative visit) Diet: Regular Addtl Attending Provider Instructions: ACTIVITY RECOMMENDATIONS: SELF CARE INSTRUCTIONS AFTER TOTAL KNEE REPLACEMENT A. You may need to continue a physical therapy program after discharge from the hospital. There are several options available to you. Your doctor will assist you in selecting the best one for you. 1. An out-patient facility 2 to 3 times a week for therapy or home therapy. 2. Continue working on all exercises taught to you in the hospital. Your goals should be to increase bending of your knee to 90 degrees and beyond and to fully straighten your knee. B. You may progress at your own pace from walking with a walker or crutches to a cane; then to no assistive devices. C. Make walking a part of your daily routine. Be up as much as comfortable with rest periods throughout the day. Rest with leg elevation is very important. Use the ice wrap frequently for the first 3-4 weeks. D. There are no restrictions on activities. You may ride in a car, shop, participate in shell sorter and all social activities. E. Wear the long elastic stockings (SANDY hose) 20 hours a day for 2 weeks after surgery. They can be removed several times a day for laundering and for a bath. F. You may shower, no tub baths until cleared by your doctor. SPECIAL CARE INSTRUCTIONS: VERY IMPORTANT TO READ AND REVIEW A. There are a few signs you need to watch for after you are home. Call [facility] if you notice any of the followin. Increased severe knee pain. Some pain is expected especially when you exercise. 2. Increased swelling in your leg or knee; pain or swelling of the calf muscle in either lower leg. 3. Any fluid drainage from the incision. 4. Shortness of breath or chest pain. B. Please call [facility] at if you have any concerns or questions about your operation or recovery. The doctor or his nurse will return your call promptly. C. You must take antibiotics before dental work, bladder, bowel or other surgery. Your doctor will provide you with a permanent care to carry describing this precaution. IMPORTANT: * REMEMBER TO TAKE ASPIRIN, 81 MG, TWICE DAILY FOR 4 WEEKS UNLESS OTHERWISE DIRECTED. THIS IS YOUR BLOOD THINNER. * HIGH RISK PATIENTS MAY BE PRESCRIBED A STRONGER BLOOD THINNER. THIS WILL BE PROVIDED AT DISCHARGE. * CALL IF INCREASED PAIN, REDNESS, DRAINAGE OR FEVER GREATER THAT 101. * WEAR SANDY HOSE 20 HOURS PER DAY FOR 2 WEEKS. This is a large suction dressing covering your incision. This will help pull any excess drainage from the wound and allow your incision to heal properly. You may shower with this if you can keep the unit outside of the shower. If any bleeding or leakage is noted please call your doctor's office. This will remain on your incision for 7 days and then should be removed. This can be done yourself or by the home nursing staff if applicable. The entire unit is disposable once removed. Once removed, keep incision clean and dry. If redness or drainage is noted, please call your surgeon. IF INCISION IS LEAKING THROUGH DRESSING, CALL THE OFFICE . FOLLOW UP VISIT: If appointment is not already scheduled: Please call [facility] to make a follow-up appointment for 2 weeks after your surgery at . Stand-Alone Forms: [facility], Smoking Cessation Medications and DC Order Prescriptions: New aspirin 81 mg Tablet,Delayed Release (Dr/Ec) 81 mg PO BID 30 Days Qty: 60 0RF celecoxib [Celebrex] 200 mg Capsule 200 mg PO BID 14 Days Qty: 28 0RF polyethylene glycol 3350 [Miralax] 17 gram powder in packet 17 g PO DAILY PRN (Reason: constipation) Qty: 5 0RF oxycodone-acetaminophen [Percocet] 5-325 mg tablet 1 tab PO Q4H Qty: 18 0RF Continued rizatriptan 10 mg tablet 10 mg PO ONCE PRN (Reason: migraine headache) Qty: 27 3RF Rx Instructions: Patient does not need immediately multivitamin Tablet 1 tab PO QAM aloe vera 25 mg capsule 1,000 mg PO QAM Metamucil (sugar) Powder 1 tbsp PO DAILY PRN (Reason: Constipation) Probiotic 100 billion cell Capsule 300 cap PO QAM diltiazem HCl 180 mg capsule,extended release 24hr 180 mg PO QAM omeprazole 40 mg capsule,delayed release(DR/EC) 40 mg PO QAM Rx Instructions: Patient does not need immediately [id number] 3 dose PO QAM Discharge Orders: Discharge Order (Routine); Ordered 08/16/22 Ordered By: Hood Steward Admission Data Admit Date/Time: 08/14/22 11:35 Attending Provider: Chan Jennings Admit Provider: Chan Jennings Primary Care Provider: Patrice Esteves Other Providers: Raj Lau Other Interventions: Discharge Summary Assessment (RN) Last Done: 08/16/22 11:11
== END 2022-08-16 12:06 | disposition home or self-care (01) ==
LOC: ASU 05:14 → 3E 05:14 → SUATTDRO 11:35